=== PATIENT | male | born 1950 | race Asian ===

== ENCOUNTER → 2019-02-19 09:08 | Outpatient (CLI) | payer MEDICARE, SELFPAY ==
--- NOTE | 2019-02-19 11:03 | PM.TREADMILL ---
Cardiac Stress Test Report Referral & Results Date Patient Seen: 02/19/19 Requesting provider: Dennis Sharpe Indication: Paroxysmal atrial fibrillation Rest ECG: Sinus rhythm, unremarkable Procedure Note: After both written and verbal informed consent the patient had an IV started by the diagnostic imaging RN, and then was hooked up to the treadmill monitoring system. The Lexiscan material, and then the Cardiolite tracer, were administered sequentially. An additional 3 min was spent monitoring the patient while supine on the gurney. The patient had a normal response to all infused materials. Impression: Please see perfusion imaging report for details regarding possible ischemia Please note: Actual ECG tracings can be found in the PACS system.
--- NOTE | 2019-02-21 07:48 | DI.NM.S_ITS ---
DATE OF SERVICE: 02/19/2019 PROCEDURE: Pharmacological perfusion study. INDICATIONS: Paroxysmal atrial fibrillation with underlying hypertension and hyperlipidemia, chronic kidney disease, history of renal transplant. RADIOPHARMACEUTICAL: 23.5 mCi technetium-99m Myoview IV was injected at stress and 25.2 mCi technetium-99m Myoview IV was injected at rest. CARDIAC STRESS: The patient underwent IV Lexiscan perfusion study under the supervision of an attending staff using standard IV Lexiscan protocol. He remained hemodynamically stable. Baseline EKG revealed sinus rhythm with T-wave inversion in anterolateral leads. Stress EKG did not reveal any new significant ischemic changes. There were no significant arrhythmias. No significant symptoms were reported. RAW DATA: There was increased subdiaphragmatic activity. GATED STUDY: Stress LV ejection fraction 67% and resting LV ejection fraction 62% without any obvious wall motion abnormalities. Resting end-diastolic volume 147 mL. No transient ischemic dilatation. TID ratio 0.80, which is within normal. Lung/heart ratio 0.27, which is within normal limits. MYOCARDIAL PERFUSION: Stress supine and resting supine images revealed a small- sized mildly-decreased perfusion of the basal inferior wall extending into the basal and mid inferoseptum, which got significantly improved during prone images, suggestive of underlying tissue attenuation artifact. No convincing ischemia or infarction pattern seen on prone images. CONCLUSION: I will call this study likely a normal myocardial perfusion study with improvement of basal inferior and inferoseptal defect during prone images. There was increased subdiaphragmatic activity on raw images. The patient's weight is 267 pounds. Overall, LV function is preserved. No transient ischemic dilatation. No lung/heart ratio abnormalities. The patient had a perfusion study in August 2009. At that time, also, he had a basal inferior wall defect which got resolved during prone images. At that time, he was able to walk on a treadmill for 5 minutes and 12 seconds. This time, the patient had a pharmacological perfusion study. DomYovany - TIEN/anjali/ts doc#: [id number]/job#: [id number] dd: 02/20/2019 17:27:00 dt: 02/21/2019 07:34:00 DICTATING MD/COPIES TO: Mary Jo Roach MD COPIES MNE: BLAYNE
== END ==
PROVIDERS: Family Provider Family Medicine; PCP Family Medicine; Visit Provider Internal Medicine Cardiovascular Disease
DX: I48.0 Paroxysmal atrial fibrillation (principal); I12.9 Hypertensive chronic kidney disease with stage 1 through stage 4 chronic kidney disease, or unspecified chronic kidney disease; N18.9 Chronic kidney disease, unspecified; E78.5 Hyperlipidemia, unspecified; Z94.0 Kidney transplant status
CPT/HCPCS: 78452; 93016; 93017; 93018; A9502; J2785